=== PATIENT | female | born 1945 | race Caucasian/White ===

== ENCOUNTER 2016-08-30 08:02 | Inpatient (IN) | payer MEDICARE, OTHER ==
[~2016-08-30] VITALS: Ht 166.4 cm; Wt 75.5 kg
[~2016-08-30 08:02] MED LIST changes: -ALBUAER3 INH; -ASPI81TA11 PO; -BECL0.07 INH; -CALC600T25 PO; -CELE200C PO; -DENO60P SQ; -FISH1000 PO; -HYDR-3580 PO; -MONT10TA2 PO; -MULT1TAB96 PO; -TAB-TAB PO
[2016-08-30] MEDS ORDERED: ALBUAER3 INH (08:55)
[2016-08-30] MEDS ORDERED: MULT1TAB96 PO (08:55)
[2016-08-30] MEDS ORDERED: BECL0.07 INH (08:55)
[2016-08-30] MEDS ORDERED: VITA100018 PO (08:55)
[2016-08-30] MEDS ORDERED: CALC600T25 PO (08:55)
[2016-08-30] MEDS ORDERED: CELE200C PO (08:55)
[2016-08-30] MEDS ORDERED: MONT10TA2 PO (08:55)
[2016-08-30] MEDS ORDERED: FISH1000 PO (08:55)
[2016-08-30] MEDS ORDERED: DENO60P SQ (08:56)
[2016-09-10] MEDS ORDERED: LACTATED RINGER'S 1000 ML IV PRN (05:30)
[2016-09-10] MEDS ORDERED: CHLORHEXIDINE GLUCONATE 2 % 1 PACK (2 CLOTHS) TOPICAL PRN (05:30)
[2016-09-10] MEDS ORDERED: SODIUM CHLORID 0.9% 500 ML IV PRN (05:30)
[2016-09-10] MEDS ORDERED: POVIDONE IODINE 5% (ANTISEPSIS KIT) 4 APPLICATIONS EACH NARE PRN (05:30)
[2016-09-10] MEDS ORDERED: INSULIN HUMAN REGULAR 1,000 UNITS/10 ML VIAL SQ PRN (05:30)
[2016-09-10] MEDS ORDERED: METOPROLOL TARTRATE 25 MG TAB PO PRN (05:30)
[2016-09-10] MEDS ORDERED: TRANEXAMIC ACID IV SCH ×2 (05:45→10:00)
[2016-09-10] MEDS ORDERED: CHLORHEXIDINE GLUCONATE 4% SOLN 120 ML BTL TOPICAL SCH (05:45)
[2016-09-10] MEDS ORDERED: SODIUM CHLORIDE 0.9% IV SCH ×2 (05:45→10:00)
[2016-09-10] MEDS ORDERED: EXPAREL PERI-ARTICULAR INJECTION (TOTAL VOL. 60 ML) P-ARTICULR SCH ×2 (05:45)
[2016-09-10] MEDS ORDERED: ceFAZolin 2 GM PREMIX 50 ML IV SCH (05:45)
[2016-09-10 05:47] VITALS: BP 141/71; PULSE 98; RESP 20; TEMP 98.1; O2SAT 100
[2016-09-10] MEDS ORDERED: GENTAMICIN SULFATE 80 MG/2 ML VIAL ONE (06:16)
[2016-09-10] MEDS ORDERED: fentaNYL CITRATE 250 MCG/5 ML AMP ONE (06:30)
[2016-09-10] MEDS ORDERED: MIDAZOLAM HCL 2 MG/2 ML VIAL ONE (06:31)
[2016-09-10] MEDS ORDERED: FAMOTIDINE 20 MG/2 ML VIAL ONE (06:31)
[2016-09-10] MEDS ORDERED: ALBUTEROL SULFATE 90 MCG/ACT HFA 8 GM INHALER INH PRN (06:45)
[2016-09-10] MEDS ORDERED: Post-op Orders (for Pharmacy) MISC XX ONE (06:45)
[2016-09-10] MEDS ORDERED: TRANEXAMIC ACID INJ 0 MG in SODIUM CHLORIDE 0.9% INJ 100 ML IV SCH (06:45)
[2016-09-10] MEDS ORDERED: CELECOXIB 200 MG CAP PO PRN ×2 (06:45→10:15)
[2016-09-10] MEDS ORDERED: MAGNESIUM HYDROXIDE SUSP 30 ML CUP PO PRN (06:45)
[2016-09-10] MEDS ORDERED: ONDANSETRON HCL 4 MG/2 ML VIAL IVP PRN (06:45)
[2016-09-10] MEDS ORDERED: NON-FORMULARY DRUG (Denosumab Inj (Prolia Inj) 60 MG) SQ SCH (06:45)
[2016-09-10] MEDS ORDERED: ZOLPIDEM TARTRATE 5 MG TAB PO PRN (06:45)
[2016-09-10] MEDS ORDERED: BISACODYL 10 MG SUPP RECTAL PRN (06:45)
[2016-09-10] MEDS ORDERED: MORPHINE SULFATE 8 MG/ML INJ IV PUSH PRN (06:45)
[2016-09-10] MEDS ORDERED: SODIUM CHLORIDE 0.9% FLUSH 5 ML FLUSH IVF PRN (06:45)
[2016-09-10] MEDS ORDERED: ACETAMINOPHEN/HYDROcodone 325 MG/7.5 MG TAB PO PRN (06:45)
[2016-09-10] MEDS ORDERED: ALBUTEROL SULFATE INH PRN (06:45)
--- NOTE | 2016-09-10 06:54 | HHI.FF ---
Face to Face Verification Diagnosis: (1) Status post total hip replacement, right Physical Therapy Gait training Hip: Total hip, Protocol: Right, Posterior hip precautions, Progress to weight bearing Canvas Knee Splint: When in bed & 2 pillows btw thighs Right LE Weight Bearing: WB as tolerated Right LE Range of Motion: Active ROM Nursing Nursing: Dressing changes Dressing Changes: Daily dressing change, Coverderm/Primapore Additional Instructions Remove steristrips on postop day 14. I have seen patient Donna Ash on 09/10/16. My clinical findings support the need for the requested home health care services because: Ltd mobility - disease progression Limited ability to care for self High risk of falls I certify that my clinical findings support that this patient is homebound because: Post-op weakness Unsteady gait/balance Unsafe to leave home unassisted Rosa M San MD (Charles) September 10, 2016 06:54
[2016-09-10] MEDS ORDERED: ALBUTEROL SULFATE 90 MCG/ACT HFA 18 GM INHALER INH PRN (07:29)
[2016-09-10] MEDS ORDERED: CELECOXIB 200 MG CAP PO SCH (09:00)
[2016-09-10] MEDS ORDERED: CALCIUM CARBONATE 1.25 GM (CA 500 MG) TAB PO SCH (09:00)
[2016-09-10] MEDS ORDERED: CHOLECALCIFEROL 1000 UNIT PO SCH (09:00)
[2016-09-10] MEDS ORDERED: CHOLECALCIFEROL (VIT D3) 1000 UNIT TAB PO SCH (09:00)
[2016-09-10] MEDS ORDERED: KETOROLAC TROMETHAMINE 30 MG/ML (IVP) VIAL IVP SCH (09:00)
[2016-09-10] MEDS ORDERED: MULTIVITAMINS/MINERALS THERAPEUTIC TAB PO SCH (09:00)
[2016-09-10] MEDS: BECLOMETHASONE DIPROPIONATE 80 MCG/ACT 8.7 GM INHALER INH SCH ×2 (09:00→21:36)
[2016-09-10] MEDS ORDERED: ASPIRIN EC 81 MG TABEC PO SCH (09:00)
[2016-09-10] MEDS: SODIUM CHLORIDE 0.9% FLUSH 5 ML FLUSH IVF SCH ×2 (09:00→19:59)
[2016-09-10] MEDS ORDERED: BIOTIN 800 MCG PO SCH (09:00)
[2016-09-10] MEDS ORDERED: BECLOMETHASONE DIPROPIONATE 40 MCG/ACT 8.7 GM INHALER INH SCH (09:00)
[2016-09-10] MEDS ORDERED: MONTELUKAST SODIUM 10 MG TAB PO SCH (09:00)
[2016-09-10] MEDS ORDERED: NON-FORMULARY DRUG (Omega-3 Fatty Acids (Fish Oil) 1 CAP) PO SCH (09:00)
[2016-09-10] MEDS ORDERED: PROPOFOL 200 MG/20 ML AMP IV ONE (09:18)
[2016-09-10] MEDS ORDERED: LACTATED RINGER'S 1000 ML INJ 1,000 ML IV ONE (09:19)
[2016-09-10] MEDS ORDERED: PHENYLEPH/NS 1000 MCG/10 ML SYR IV ONE (09:19)
[2016-09-10] MEDS ORDERED: ONDANSETRON HCL 4 MG/2 ML VIAL IV PUSH ONE (09:19)
--- NOTE | 2016-09-10 09:58 | RADRPT ---
EXAM DATE/TIME: 09/10/2016 09:26 [place] COMPARISON: No previous studies available for comparison. INDICATIONS : Post op right hip arthroplasty. MEDICAL HISTORY : None. SURGICAL HISTORY : None. ENCOUNTER: Initial ACUITY: 1 day PAIN SCORE: 0/10 LOCATION: Right hip FINDINGS: 2 views of the right hip following recent total hip arthroplasty demonstrates acetabular and proximal femoral hardware in place, as expected. There is at least one acetabular screw. There is soft tissue gas, as expected. No unexpected finding is identified. CONCLUSION: Expected findings following recent right total hip arthroplasty. Alex Carrillo MD on September 10, 2016 at 9:55 Board Certified Radiologist. This report was verified electronically.
[2016-09-10] MEDS ORDERED: DO NOT ADM ANY ANTICOAGULANT DRUGS PRN (10:00)
[2016-09-10] MEDS: LACTATED RINGER'S 1000 ML INJ 1,000 ML IV SCH ×2 (10:00→19:13)
[2016-09-10] MEDS: KETOROLAC TROMETHAMINE 30 MG/ML (IVP) VIAL IVP SCH ×2 (12:25→18:25)
--- NOTE | 2016-09-10 12:55 | MP ---
cc: Lincoln HILL. DATE OF SURGERY: 09/10/2016 PREOPERATIVE DIAGNOSIS: Primary osteoarthritis, right hip. POSTOPERATIVE DIAGNOSIS: Primary osteoarthritis, right hip. OPERATION: Right total hip arthroplasty with Gwendolyn prosthesis. SURGEON: Rosa M Hill MD. BOOK SALESMAN: Mode Askew. ANESTHESIA: Spinal with supplemental local. INDICATIONS FOR PROCEDURE/FINDINGS: This 71 year old woman has had at least eight months worth of right hip pain which is progressively worsened over the past several months to the point that she can only walk minimal distances because of pain. She has stiffness and pain on motion. She has difficulty ascending stairs and standing from a seated position. She has not responded with conservative measures including analgesics, antiinflammatories and activity modification, exercises and ambulatory aides. PHYSICAL EXAMINATION: Physical findings showed limited range of motion in the right hip with tenderness on motion. She has some shortening on this side. Radiographic findings showed significant arthritis in the right hip going to bone on bone with osteophytes and multiple degenerative system in the acetabulum and femoral head. There are osteophytes as well. Operative findings showed severe osteoarthritis with loss of cartilage to subchondral bone. There is polishing and eburnation of the femoral head and acetabulum. Multiple degenerative cysts were noted. There were some osteophytes as well. The prosthesis used was the Gwendolyn prosthesis with the acetabular component, being a titanium cluster shell size 52 mm outer diameter with a trident X3 polyethylene insert 0 degrees with 32 mm inner diameter. Two 25 mm screws were used. The femoral component was an Accolade II hip stem size 5/132 degree neck angle. The femoral head was a cobalt chromic LSIT femoral head size 32 mm outer diameter with an offset of -4 mm's. PROCEDURE: The patient was brought to the operating room and a Spinal anesthetic was administered. She was [facility] a lateral [facility] with a right hip up. An axillary roll was under the left shoulder. Right hip was then prepped with alcohol, Hibiclens and Chloraprep and draped in the usual manner with hip draped free. An appropriate time-out procedure was carried out. She received prophylactic antibiotics in the form of Ancef according to the protocol and also received tranexamic acid. This was also according to the protocol. After the time-out procedure local anesthesia was administered into the incision site with Exparel. A posterior lateral incision was then made approximately 15 cm in length, centered over the posterior superior aspect of the greater trochanter. The incision was deepened through the subcutaneous tissues to the fascia minal and gluteus fascia which were incised in line with fibers in the skin incision. A Charnley retractor was placed with towels. The hip was internally rotated. The external rotators were transected off the posterior aspect of the of the greater trochanter. The posterior capsulotomy was carried out with a posteriorly based flap. The hip was dislocated. The femoral neck was transected with the oscillating saw at the appropriate level. When the femoral head was removed. Femoral preparation was initiated with a box osteotome followed by canal finding awl and then serial broaching starting at size zero and going to size five. At size five, its enough, the calcar planing was necessary. The hip was repositioned. Retractors were placed about the acetabulum. Soft tissues were cleaned from the acetabulum. Reaming was then started out at 43 mm centralizing to the teardrop and then going in 2-mm increments to 49mm and 1 mm increments to 52 mm. A 52 mm trial prosthesis was impacted into place. This was then removed. The 52 mm titanium acetabular shell was impacted into place and seated appropriately. Drill holes were made. Two screws were then placed through the dome screws. The 0 degrees polyethylene insert was impacted into place and seated appropriately. A trial reduction was then carried out with a -4 mm neck length trial. This showed excellent position, alignment and stability. The broach was then removed. The femoral component was then impacted into place after cleaning the medullary canal with pulse lavage. When this was seated reduction was carried out again which showed excellent position, excellent alignment and excellent stability. The leg length was appropriate. There was no pistoning. The trial prosthesis was removed. The actual prosthesis was placed onto the cleaned and dried trunnion. The hip was reduced. Wound closure then commenced using #1 Vicryl transosseous sutures using a crack out technique to reattach the posterior capsule and the external rotators. The sciatic nerve was inspected and found to be unmolested. The fascia minal and gluteus fascia were repaired with #1 Vicryl interrupted [id number] sutures. Prior to closure and at various intervals during the procedure. The soft tissues were infiltrated with Exparel. The subcutaneous tissues were closed with 2-0 Vicryl interrupted simple sutures with buried knots. The skin was closed continuous subcuticular closure of 4-0 Monocryl. The wound was dressed with Steri-Strips followed by dry dressing and Medipore compression hip dressing. The leg was placed in the leg kim. The patient was transferred to the recovery room in satisfactory condition having tolerated the procedure well. Counts were correct. Specimens none. Estimated blood loss 100 mL. MD ROSA Blanco/diana /9:03 AM /12:32 PM
[2016-09-10] MEDS: ACETAMINOPHEN/HYDROcodone 325 MG/7.5 MG TAB PO PRN ×3 (13:58→21:35)
[2016-09-10 14:00] VITALS: BP 135/57; PULSE 90; RESP 16; TEMP 97.4; O2SAT 96
[2016-09-10 15:54] VITALS: O2SAT 96
[2016-09-10 20:15] VITALS: BP 98/62; PULSE 90; RESP 17; TEMP 97.5; O2SAT 94
[2016-09-10 21:18] VITALS: O2SAT 97
[2016-09-11] VITALS: BP 118/64; PULSE 98; RESP 17; TEMP 98.1; O2SAT 97
[2016-09-11] MEDS: KETOROLAC TROMETHAMINE 30 MG/ML (IVP) VIAL IVP SCH ×2 (00:09→05:08)
[2016-09-11 04:05] VITALS: BP 112/61; PULSE 96; RESP 17; TEMP 98.8; O2SAT 94
[2016-09-11] MEDS: ACETAMINOPHEN/HYDROcodone 325 MG/7.5 MG TAB PO PRN ×2 (05:08→10:23)
[2016-09-11] MEDS: LACTATED RINGER'S 1000 ML INJ 1,000 ML IV SCH (06:02)
[2016-09-11 06:42] LABS: HEMATOCRIT 29.6 % (35.0-46.0); REVIEW FLAG FINAL
[2016-09-11] MEDS: BECLOMETHASONE DIPROPIONATE 80 MCG/ACT 8.7 GM INHALER INH SCH (07:31)
[2016-09-11 07:41] VITALS: BP 122/58; PULSE 94; RESP 16; TEMP 97.7; O2SAT 95
--- NOTE | 2016-09-11 08:04 | PD.ORT.PN ---
Subjective Post Op Day #: 1 Subjective Remarks She is doing well. She has little pain now. She has been OOB. Distance Walked 110 feet with PT. Objective Vitals Vital Signs Date Time Temp Pulse Resp B/P Pulse Ox O2 Delivery O2 Flow Rate FiO2 09/11/16 04:05 98.8 96 17 112/61 94 09/11/16 00:00 98.1 98 17 118/64 97 09/10/16 21:18 97 21 09/10/16 20:15 97.5 90 17 98/62 94 09/10/16 15:54 96 21 09/10/16 14:00 97.4 90 16 135/57 96 09/10/16 12:30 97.5 85 14 120/59 94 Room Air 09/10/16 12:00 97.5 09/10/16 10:30 62 14 129/65 98 Nasal Cannula 2 09/10/16 10:15 96.5 60 14 131/63 100 Nasal Cannula 2 09/10/16 10:00 62 14 132/77 100 Nasal Cannula 2 09/10/16 09:45 58 14 114/58 100 Nasal Cannula 2 09/10/16 09:30 67 15 103/56 99 Nasal Cannula 2 09/10/16 09:25 96.2 09/10/16 09:21 96.2 62 14 107/59 97 Nasal Cannula 2 I/O 09/10/16 09/10/16 09/10/16 09/11/16 09/11/16 09/11/16 07:00 15:00 23:00 07:00 15:00 23:00 Intake Total 1560 ml 700 ml 240 ml Output Total 350 ml Balance 1210 ml 700 ml 240 ml Intake Oral 700 ml 240 ml IV Total 260 ml Other 1300 ml Output Urine Total 250 ml Estimated Blood Loss 100 ml # Voids 1 3 3 # Bowel Movements 1 0 Result Diagram: 09/11/16 0607 Imaging Hip x-ray looks good. Last 72 hours Impressions Hip X-Ray 09/10/16 0000 Signed Impressions: Service Date/Time: Saturday, September 10, 2016 09:26 - CONCLUSION: Expected findings following recent right total hip arthroplasty. Alex Carrillo MD Objective Remarks She is resting comfortably, supine in bed. The dressing is dry and intact. The neurovascular status is intact. Assessment & Plan Ortho Post Op Day #: 1 Problem List: (1) Status post total hip replacement, right Plan: Continue postop care and PT. Assessment and Plan Condition: Good. Orthopaedically stable. DVT prophylaxis: TEDs, sequentials, ASA. Discharge plans: Home with [facility]. Has appointment. Rx: [place] 7.5/325 Rosa M San MD (Charles) September 11, 2016 08:04
[2016-09-11] MEDS ORDERED: HYDR-3580 PO (08:36)
[2016-09-11] MEDS ORDERED: ASPI81TA11 PO (08:36)
[2016-09-11] MEDS ORDERED: CHOLECALCIFEROL (VIT D3) 1000 UNIT TAB PO SCH (09:00)
[2016-09-11] MEDS ORDERED: CELECOXIB 200 MG CAP PO SCH (09:00)
[2016-09-11] MEDS ORDERED: CALCIUM CARBONATE 1.25 GM (CA 500 MG) TAB PO SCH (09:00)
[2016-09-11] MEDS ORDERED: ASPIRIN EC 81 MG TABEC PO SCH (09:00)
[2016-09-11] MEDS ORDERED: MULTIVITAMINS/MINERALS THERAPEUTIC TAB PO SCH (09:00)
[2016-09-11] MEDS ORDERED: MONTELUKAST SODIUM 10 MG TAB PO SCH (09:00)
[2016-09-11] MEDS ORDERED: INFLUENZA VIRUS VACCINE (QUADRIVALENT) 0.5 ML SYR IM ONE (10:00)
--- NOTE | 2016-09-11 10:13 | PD.CONS ---
HPI Service [facility] Hospitalists Consult Requested By Dr. San. Reason for Consult Medical management. Primary Care Physician Britt Ellis MD Diagnoses: (1) Primary osteoarthritis of right hip (2) Status post total hip replacement, right History of Present Illness Mrs. Ash is a 71-year-old male with a known history of asthma, allergies, joint pain and osteoarthritis who is status post right total hip arthroplasty today 09/[address] San. Hospitalist team has been consulted for medical management. Patient seen and examined. Awake, alert and oriented, denies any acute complaints. Pain well controlled. Has been out of bed walking in room. Denies any numbness or tingling to right lower extremity. Right hip dressing clean, dry, intact. No erythema noted. Plan is to discharge patient home later today with [facility]. Vitals stable. Denies any recent fever, chills, cough, shortness of breath, abdominal pain, nausea, vomiting, diarrhea or dysuria. Review of Systems Except as stated in HPI: all other systems reviewed are Neg Past Family Social History Allergies: Coded Allergies: No Known Allergies (Unverified , 09/10/16) Past Medical History Asthma Allergies Osteoarthritis History of diverticulitis Past Surgical History Bilateral knee replacements Left foot fusion Post tibial transfer in right foot in 2000 Dobutrens surgery on left hand Reported Medications Active Hydrocodone-Acetaminophen 7.5-325 mg Tab 1 Tab PO Q4H PRN Reported Prolia Inj (Denosumab) 60 Mg/Ml Inj 60 Mg SQ Q180D Fish Oil (Myra-3 Fatty Acids) 1,000 Mg Cap 1 Cap PO DAILY Calcium (Calcium Carbonate) 600 Mg Tab 1 Tab PO DAILY Vitamin D3 (Cholecalciferol) 1,000 Unit Tab 1,000 Units PO DAILY Multivitamin Women 50+ (Multiple Vitamins W/ Minerals) 1 Tab Tab 1 Tab PO DAILY Proair Hfa 8.5 GM Inh (Albuterol Sulfate) 90 Mcg/Act Aer 2 Puff INH Q4-6H PRN 108 mcg/actuation Singulair (Montelukast Sodium) 10 Mg Tab 10 Mg PO DAILY Celebrex (Celecoxib) 200 Mg Cap 200 Mg PO DAILY Qvar Inh (Beclomethasone Dipropionate) 40 Mcg/Act Aero 1 Puff INH DAILY Qvar 80 mcg (Beclomethasone Dipropionate) 80 Mcg Aer 2 Puff INH BID Celebrex (Celecoxib) 200 Mg Cap 200 Mg PO DAILY PRN Biotin 800 Mcg Tab 800 Mcg PO DAILY Vitamin D (Cholecalciferol) 1,000 Unit Tab 1,000 Unit PO DAILY Ventolin Hfa (Albuterol Sulfate) 18 Gm Aero 1 Puff INH DAILY PRN Active Ordered Medications Current Medications Medications (Trade) Dose Ordered Sig/Ro Route Start Time Stop Time Status Last Admin Lactated Ringer's 1,000 ml @ 30 mls/hr Q24H PRN IV 09/10/16 05:30 09/13/16 05:29 09/10/16 05:45 (NS 500 ml Inj) 500 ml @ 30 mls/hr [id number] PRN IV 09/10/16 05:30 09/13/16 05:29 Chlorhexidine Gluconate 1 applic 1 applic ONCE TOPICAL 09/10/16 05:45 09/13/16 05:44 Tranexamic Acid 709 mg/Sodium Chloride 107.09 ml @ 200 mls/ hr ONCE IV 09/10/16 10:00 09/11/16 09:59 09/10/16 10:16 (Lr 1000 ml Inj) 1,000 ml @ 80 mls/hr [id number] IV 09/10/16 06:43 09/10/16 10:00 (NS Flush) 2 ml UNSCH PRN IVF 09/10/16 06:45 (NS Flush) 2 ml BID IVF 09/10/16 09:00 (Morphine Inj) 5 mg Q3H PRN IV PUSH 09/10/16 06:45 ([place] 7.5-325 Mg) 1 tab Q4H PRN PO 09/10/16 06:45 09/11/16 05:08 ([place] 7.5-325 Mg) 2 tab Q4H PRN PO 09/10/16 06:45 (Zofran Inj) 4 mg Q6H PRN IVP 09/10/16 06:45 (Colace) 100 mg BID PO 09/11/16 21:00 (Ambien) 5 mg HS PRN PO 09/10/16 06:45 (Dulcolax Supp) 10 mg DAILY PRN RECTAL 09/10/16 06:45 (Milk Of Magnesia Liq) 30 ml DAILY PRN PO 09/10/16 06:45 (Qvar 80 Mcg Inh) 2 puff BID INH 09/10/16 09:00 09/11/16 07:31 (Ventolin Hfa Inh) 2 puff Q4H PRN INH 09/10/16 07:29 Miscellaneous Information ALL NURSING DEPARTME... UNSCH PRN .XX 09/10/16 10:00 09/11/16 09:59 (Ecotrin Ec) 81 mg BID PO 09/11/16 09:00 09/11/16 07:30 (Oscal) 500 mg DAILY PO 09/11/16 09:00 09/11/16 07:30 (CeleBREX) 200 mg DAILY PO 09/11/16 09:00 09/11/16 07:30 (CeleBREX) 200 mg DAILY PRN PO 09/10/16 10:15 (Vitamin D3) 1,000 units DAILY PO 09/11/16 09:00 09/11/16 07:30 (Toradol Inj) 15 mg Q6H IVP 09/10/16 12:00 09/12/16 06:01 09/11/16 05:08 (Singulair) 10 mg DAILY PO 09/11/16 09:00 09/11/16 07:30 (Theragran M Tab) 1 tab DAILY PO 09/11/16 09:00 09/11/16 07:30 Family History Paternal medical history includes cardiovascular disease. Maternal medical history significant for kidney cancer, mother at the age of 51 years. Social History Patient lives at home with . Denies any tobacco use. Does admit to an occasional cocktail with dinner several times per week. Denies any illicit drug use. Physical Exam Vital Signs Vital Signs Date Time Temp Pulse Resp B/P Pulse Ox O2 Delivery O2 Flow Rate FiO2 09/11/16 07:41 97.7 94 16 122/58 95 09/11/16 04:05 98.8 96 17 112/61 94 09/11/16 00:00 98.1 98 17 118/64 97 09/10/16 21:18 97 21 09/10/16 20:15 97.5 90 17 98/62 94 09/10/16 15:54 96 21 09/10/16 14:00 97.4 90 16 135/57 96 09/10/16 12:30 97.5 85 14 120/59 94 Room Air 09/10/16 12:00 97.5 09/10/16 10:30 62 14 129/65 98 Nasal Cannula 2 09/10/16 10:15 96.5 60 14 131/63 100 Nasal Cannula 2 09/10/16 10:00 62 14 132/77 100 Nasal Cannula 2 Physical Exam GENERAL: Well-nourished, well-developed patient, in NAD, sitting up on side of bed. SKIN: No rashes, ecchymoses or lesions. Warm and dry. Right hip dressing intact , clean, dry, intact, no erythema noted. HEENT: Atraumatic. Normocephalic. Pupils equal round and reactive. Extraocular motions intact. No scleral icterus. No injection or drainage. Nose without bleeding. Airway patent. NECK: Trachea midline. Neck supple. CARDIOVASCULAR: Regular rate and rhythm. No murmur appreciated. RESPIRATORY: Clear to auscultation. Breath sounds equal bilaterally. No wheezes , rales, or rhonchi. GASTROINTESTINAL: Abdomen soft, non-tender, nondistended. No guarding. MUSCULOSKELETAL: Extremities without clubbing, cyanosis, or edema. No joint tenderness, effusion, or edema noted. NEUROLOGICAL: Awake and alert. Cranial nerves II through XII intact. Motor and sensory grossly within normal limits. Five out of 5 muscle strength in all muscle groups. Normal speech. Laboratory Laboratory Tests Test 09/11/16 06:07 Hemoglobin 10.3 Hematocrit 29.6 Result Diagram: 09/11/16 0607 Imaging Last Impressions Hip X-Ray 09/10/16 0000 Signed Impressions: Service Date/Time: Saturday, September 10, 2016 09:26 - CONCLUSION: Expected findings following recent right total hip arthroplasty. Alex Carrillo MD Assessment and Plan Assessment and Plan Mrs. Ash is a 71-year-old male with a known history of asthma, allergies, joint pain and osteoarthritis who is status post right total hip arthroplasty today 09/[address] San. Hospitalist team has been consulted for medical management. Status post total right hip arthroplasty - Post op day 0. - Control pain, [place] PO PRN per pain scale. Toradol 15 mg IV Q6hr scheduled. Morphine 5 mg IV PRN for breakthrough pain. - Dressing changes per surgery recommendations. Plan is to discharge patient home later today with [facility]. Asthma, chronic - Continue at home Qvar 2 puff INH BID and Singulair 10 mg PO daily. - Encourage use of IS. Osteoarthritis, chronic - Continue at home medications including calcium carbonate 500 mg PO daily, Celebrex 200 mg PO daily DVT prophylaxis: SCDs/TEDs. Chemical recommendations per surgery recommendations. Written by Agustina Salazar, acting as scribe for Dr. Stanley on 09/11/16 at 10:13. This note was transcribed by scribe Agustina FERREIRA. I, Dr. Sienna Stanley personally performed the history, physical exam, and medical decision making; and confirmed the accuracy of the information in the transcribed note. Authenticated by Dr. Sienna Stanley on 09/11/16 at 10:13. Agustina Salazar September 11, 2016 10:13 Sienna Stanley MD September 11, 2016 11:46
[2016-09-11 11:50] VITALS: BP 106/57; PULSE 98; RESP 16; TEMP 98.5; O2SAT 94
[2016-09-11 13:46] VITALS: O2SAT 96
[2016-09-11] MEDS ORDERED: DOCUSATE SODIUM 100 MG CAP PO SCH (21:00)
== END 2016-09-11 16:00 | disposition home health service (06) | DRG 470 ==
LOC: HSDI 09-10 05:14 → N06A 09-10 13:17
PROVIDERS: ADMIT Orthopaedic Surgery; ATTEND Orthopaedic Surgery
PROC: 0SR902Z Replacement of Right Hip Joint with Metal on Polyethylene Synthetic Substitute, Open Approach (ICD-10-PCS; principal; 2016-09-10 06:43)
DX: M16.11 Unilateral primary osteoarthritis, right hip (principal); J45.909 Unspecified asthma, uncomplicated; M25.751 Osteophyte, right hip; Z96.653 Presence of artificial knee joint, bilateral
CPT/HCPCS: 73502; 85014; 85018; 86850; 86900; 86901; 94150; C1776; C9290; J0690; J1580; J1885; J2250; J2370; J2405; J3010; J7120; L1830

== ENCOUNTER → 2016-08-30 | Outpatient (CLI) | payer MEDICARE, OTHER ==
[~2016-08-30] MED LIST: ALBUAER3 INH; ASPI81TA11 PO; BECL0.07 INH; BECL80AE3 INH; BIOT800T2 PO; CALC600T25 PO; CELE200 PO; CELE200C PO; DENO60P SQ; FISH1000 PO; HYDR-3580 PO; MONT10TA2 PO; MULT1TAB96 PO; TAB-TAB PO; VENTAER INH; VITA100018 PO
[2016-08-30 08:28] LABS: HEMATOCRIT 35.7 % (35.0-46.0); MEAN CELL VOLUME 91.7 FL (80.0-100.0); MEAN CORPUSCULAR HEMOGLOBIN 31.8 PG (27.0-34.0); MEAN CORPUSCULAR HGB CONC 34.7 % (32.0-36.0); PLATELET COUNT 295 TH/MM3 (150-450); REVIEW FLAG FINAL; WHITE BLOOD COUNT 3.8 TH/MM3 (4.0-11.0)
[2016-08-30 08:40] LABS: PROTHROMBIN TIME - PATIENT 10.7 SEC (9.8-11.6)
[2016-08-30 09:01] LABS: BICARBONATE 30.1 MEQ/L (21.0-32.0); POTASSIUM 4.2 MEQ/L (3.5-5.1)
[2016-08-30 09:39] LABS: BLOOD, URINE NEG (NEG); GLUCOSE,URINE NEG (NEG); KETONE, URINE NEG (NEG); MUCUS URINE FEW /lpf (OCC); NITRITE,URINE NEG (NEG); URINE COLOR YELLOW (YELLW/STRAW)
[2016-08-30 09:40] LABS: COMMENT (UR) CATH-CULT NOT IND; CULTURE IF INDICATED CATH CULTURE NOT IND
== END ==
LOC: CPRE 07:59
PROVIDERS: ATTEND Orthopaedic Surgery
DX: Z01.812 Encounter for preprocedural laboratory examination (principal); M16.11 Unilateral primary osteoarthritis, right hip; M79.609 Pain in unspecified limb
CPT/HCPCS: 36415; 80048; 81001; 85027; 85610; 85730